=== PATIENT | female | born 1995 | race African-American/Black ===

== ENCOUNTER 2016-09-30 15:11 | Emergency (ER) | payer SELFPAY ==
[~2016-09-30] VITALS: Ht 157.5 cm; Wt 87.7 kg
[~2016-09-30 15:11] MED LIST: ALBU8.5H5 INH; PRED5POW3
[2016-09-30 15:15] VITALS: BP 137/87
[2016-09-30 16:17] LABS: ASPARTATE AMINO TRANSFERASE 64 U/L (15-37); BLOOD UREA NITROGEN 15 mg/dL (7-18)
[2016-09-30 17:10] LABS: DIFF TOTAL CELLS COUNTED 100 CELL DIFF
[2016-09-30 17:14] LABS: VERIFY COUNTS? YES
== END 2016-09-30 17:59 | disposition home or self-care (01) ==
LOC: ED 17:51
DX: N92.1 Excessive and frequent menstruation with irregular cycle (principal); N83.291 Other ovarian cyst, right side
CPT/HCPCS: 36415; 76830; 80053; 81001; 84703; 85025

== ENCOUNTER 2017-02-26 21:51 | Emergency (ER) | payer OTHER ==
[~2017-02-26] VITALS: Ht 157.5 cm; Wt 89.3 kg
[2017-02-26 21:53] VITALS: BP 142/96
[2017-02-26 22:47] LABS: HCG UR LOT HCG7030192
[2017-02-26 23:11] LABS: HCG UR OBC PASS
== END 2017-02-26 23:38 | disposition home or self-care (01) ==
LOC: ED 23:20
DX: R30.0 Dysuria (principal); J45.909 Unspecified asthma, uncomplicated
CPT/HCPCS: 81003; 81025; 99284

== ENCOUNTER 2017-03-08 10:48 | Emergency (ER) | payer SELFPAY ==
[~2017-03-08] VITALS: Ht 157.5 cm; Wt 86.8 kg
[2017-03-08 10:51] VITALS: BP 144/93
== END 2017-03-08 11:36 | disposition home or self-care (01) ==
LOC: ED 11:30
DX: K08.89 Other specified disorders of teeth and supporting structures (principal); J45.909 Unspecified asthma, uncomplicated
CPT/HCPCS: 99283

== ENCOUNTER 2017-06-08 17:01 | Emergency (ER) | payer OTHER ==
[~2017-06-08] VITALS: Ht 157.5 cm; Wt 89.3 kg
[2017-06-08] MEDS ORDERED: SODIUM CHLORIDE 0.9% 1,000 ML IV ONE (17:49)
[2017-06-08] MEDS ORDERED: SODIUM CHLORIDE 0.9% 1,000ML IVBOLUS ONE (18:00)
[2017-06-08] MEDS ORDERED: ONDANSETRON 2MG/ML, 2ML IVPush ONE (18:00)
[2017-06-08] MEDS ORDERED: FAMOTIDINE 20 MG/2 ML IVP ONE (18:00)
[2017-06-08 19:48] VITALS: BP 142/97
== END 2017-06-08 19:51 | disposition home or self-care (01) ==
LOC: ED 19:45
DX: B34.9 Viral infection, unspecified (principal); J45.909 Unspecified asthma, uncomplicated
CPT/HCPCS: 71046; 99284